=== PATIENT | female | born 1960 | race African-American/Black ===

== ENCOUNTER 2024-10-16 18:57 | Emergency (ER) | payer SELFPAY ==
[~2024-10-16] VITALS: Ht 165.1 cm; Wt 73.0 kg
[2024-10-16 19:35] VITALS: O2SAT 100
[2024-10-16] MEDS: ACETAMINOPHEN 325MG TABLET PO ONE (22:29)
[2024-10-16] MEDS: IBUPROFEN 600MG TABLET PO ONE (22:30)
[2024-10-16 23:30] VITALS: BP 123/79; PULSE 80; RESP 18; TEMP 36.9; O2SAT 100
[2024-10-16] MEDS ORDERED: IBUP-1523 MT (23:52)
[2024-10-16] MEDS ORDERED: TOPUD MT (23:52)
== END 2024-10-16 23:55 | disposition home or self-care (01) ==
LOC: ER 18:57
DX: M47.812 Spondylosis without myelopathy or radiculopathy, cervical region (principal); Z79.899 Other long term (current) drug therapy; V89.2XXA Person injured in unspecified motor-vehicle accident, traffic, initial encounter; Y93.89 Activity, other specified; Y92.89 Other specified places as the place of occurrence of the external cause; Y99.8 Other external cause status
CPT/HCPCS: 72040; 72100; 73560; 99284